=== PATIENT | female | born 1980 | race Caucasian/White ===

== ENCOUNTER 2017-08-26 21:59 | Emergency (ER) | payer OTHER ==
[~2017-08-26] VITALS: Ht 157.5 cm; Wt 73.4 kg
[2017-08-26 22:29] LABS: BASOPHILS # (AUTO) 0.03 x10^3/uL (0-0.1); BASOPHILS % (AUTO) 0 % (0-1); EOSINOPHILS % (AUTO) 1 % (1-7); LYMPHOCYTES # (AUTO) 3.12 x10^3/uL (1-3.4); LYMPHOCYTES % (AUTO) 37 % (22-44); MD NO; MEAN CORPUSCULAR HEMOGLOBIN 30.5 pg (27.0-34.8); MEAN CORPUSCULAR HGB CONC 34.5 g/dL (32.4-35.8); MEAN CORPUSCULAR VOLUME 88.6 fL (80-100); MEAN PLATELET VOLUME 8.6 fL (7.4-10.4); MONOCYTES # (AUTO) 0.44 x10^3/uL (0.2-0.8); MONOCYTES % (AUTO) 5 % (2-9); NEUTROPHILS # (AUTO) 4.75 x10^3/uL (1.8-6.8); NEUTROPHILS % (AUTO) 56 % (42-75); PLATELET COUNT 286 x10^3/uL (130-400); RED BLOOD COUNT 5.12 x10^6/uL (3.82-5.3); RED CELL DISTRIBUTION WIDTH 13.3 % (9.6-15.2)
[2017-08-26] MEDS ORDERED: IBUPROFEN 200 MG TABLET PO ONE (22:30)
[2017-08-26] MEDS ORDERED: IBUPROFEN 200 MG TABLET ONE (22:35)
[2017-08-26 22:37] LABS: HCG UR SG 1.019 (1.003-1.030); MICROSCOPIC NOT IND
[2017-08-26 22:40] LABS: CULTURE INDICATED? NO
[2017-08-26 22:41] LABS: ALBUMIN 3.9 g/dL (3.4-5.0); ANION GAP 6 mmol/L (5-15); CHLORIDE 106 mmol/L (98-107); CREATININE 0.65 mg/dL (0.55-1.02)
[2017-08-26 22:47] LABS: ALANINE AMINOTRANSFERASE 50 U/L (12-78); ALKALINE PHOSPHATASE 133 U/L (45-117); BILIRUBIN,TOTAL 0.4 mg/dL (0.2-1.0)
[2017-08-26] MEDS ORDERED: OMNIPAQUE 350 MG/ML, 100ML BOTTLE ONE (23:10)
[2017-08-26 23:56] VITALS: BP 100/58
== END 2017-08-26 23:59 | disposition home or self-care (01) ==
LOC: ED 22:55
DX: D25.9 Leiomyoma of uterus, unspecified (principal); R10.32 Left lower quadrant pain
CPT/HCPCS: 36415; 74177; 80053; 81003; 81025; 82962; 83690; 85025; 99285; Q9967